=== PATIENT | male | born 1955 | race African-American/Black ===

== ENCOUNTER 2024-07-08 22:46 | Inpatient (IN) | payer MEDICARE ==
[~2024-07-08] VITALS: Ht 188 cm; Wt 108.9 kg
[2024-07-08 22:51] VITALS: O2SAT 99
[2024-07-08 23:41] LABS: BASOPHILS % 0.7 % (0.0-2.0); EOSINOPHILS % 0.7 % (0.0-5.0); HEMATOCRIT. 29.5 % (42.0-52.0); HEMOGLOBIN. 9.1 g/dL (14.0-18.0); LYMPHOCYTES % 14.9 % (20.0-50.0); MEAN CORPUSCULAR HEMOGLOBIN 20.5 pg (28.0-32.0); MEAN CORPUSCULAR HGB CONC 30.7 g/dL (31.0-37.0); MEAN CORPUSCULAR VOLUME 66.6 fL (80.0-94.0); MEAN PLATELET VOLUME 9.7 fl (7.4-10.4); MONOCYTES % 11.5 % (2.0-8.0); NEUTROPHILS % 72.2 % (40.0-76.0); PLATELET 232 x1000/uL (130-400); RED BLOOD CELL COUNT 4.43 mill/uL (4.7-6.1); RED CELL DISTRIBUTION WIDTH 20.1 % (11.6-14.6); WHITE BLOOD COUNT 4.5 x1000/uL (4.5-11.0)
[2024-07-08 23:44] LABS: CHLORIDE 108 mEq/L (98-107); POTASSIUM 3.7 mEq/L (3.5-5.1); SODIUM 140 mEq/L (136-145)
[2024-07-08 23:45] LABS: CALCIUM 8.8 mg/dL (8.7-10.4); CARBON DIOXIDE 24 mEq/L (21-32)
[2024-07-08 23:48] LABS: PARTIAL THROMBOPLASTIN TIME 26.8 sec (23.4-31.0); PROTHROMBIN TIME 11.6 sec (9.6-11.0)
[2024-07-08 23:50] LABS: CREATININE 0.8 mg/dL (0.6-1.3); ETHANOL BLOOD < 10 mg/dL (<10); GLUCOSE 125 mg/dL (70-105); UREA NITROGEN BLOOD 13 mg/dL (9-23)
[2024-07-08 23:51] LABS: TROPONIN I HIGH SENSITIVITY 28 ng/L (3.0-53)
[2024-07-09 00:33] LABS: DIFFERENTIAL COMMENT 1
[2024-07-09 00:34] LABS: ADD RBC MORPHOLOGY YES
[2024-07-09] MEDS: NITROGLYCERIN OINT 1GM/INCH UDPKT TD NR (00:41)
[2024-07-09] MEDS: FUROSEMIDE 40MG/4ML VIAL IVP NR (00:41)
[2024-07-09] MEDS: HYDRALAZINE 20MG/ML VIAL IV ONE (02:19)
[2024-07-09] MEDS ORDERED: DOCUSATE SODIUM 100MG CAPSULE PO PRN (08:15)
[2024-07-09] MEDS ORDERED: CLONIDINE 0.1MG TABLET PO PRN (08:15)
[2024-07-09] MEDS ORDERED: ONDANSETRON HCL 4MG/2ML INJ IV PRN (08:15)
[2024-07-09] MEDS ORDERED: IPRATROPIUM/ALBUTEROL 0.5-3(2.5)MG/3ML NEB HHN PRN (08:15)
[2024-07-09] MEDS ORDERED: ACETAMINOPHEN 325MG TABLET PO PRN (08:15)
[2024-07-09 08:55] VITALS: BP 167/98; PULSE 75; RESP 18; TEMP 36.3; O2SAT 97
[2024-07-09 09:00] VITALS: BP 167/98; PULSE 75; RESP 18; TEMP 36.3
[2024-07-09] MEDS: FUROSEMIDE 40MG/4ML VIAL IVP SCH (09:32)
[2024-07-09 11:50] VITALS: BP 147/92; PULSE 89; RESP 19; TEMP 36.6; O2SAT 100
[2024-07-09 12:46] LABS: HEMOGLOBIN. 9.3 g/dL (14.0-18.0)
[2024-07-09 12:48] LABS: HEMATOCRIT. 30.8 % (42.0-52.0); MEAN CORPUSCULAR HEMOGLOBIN 20.2 pg (28.0-32.0); MEAN CORPUSCULAR HGB CONC 30.1 g/dL (31.0-37.0); MEAN CORPUSCULAR VOLUME 67.1 fL (80.0-94.0); MEAN PLATELET VOLUME 10.4 fl (7.4-10.4); PLATELET 225 x1000/uL (130-400); RED BLOOD CELL COUNT 4.58 mill/uL (4.7-6.1); RED CELL DISTRIBUTION WIDTH 19.7 % (11.6-14.6); WHITE BLOOD COUNT 6.1 x1000/uL (4.5-11.0)
[2024-07-09 12:51] LABS: CHLORIDE 107 mEq/L (98-107); POTASSIUM 3.4 mEq/L (3.5-5.1); SODIUM 142 mEq/L (136-145)
[2024-07-09 12:52] LABS: CARBON DIOXIDE 28 mEq/L (21-32)
[2024-07-09 12:53] LABS: CALCIUM 8.8 mg/dL (8.7-10.4)
[2024-07-09 12:55] LABS: DIFFERENTIAL COMMENT 1
[2024-07-09 12:57] LABS: CREATININE 0.8 mg/dL (0.6-1.3); GLUCOSE 121 mg/dL (70-105)
[2024-07-09 12:58] LABS: UREA NITROGEN BLOOD 10 mg/dL (9-23)
[2024-07-09 12:59] LABS: ALANINE AMINOTRANSFERASE 34 IU/L (10-49); ALBUMIN 3.4 g/dL (3.2-4.8); ASPARTATE AMINOTRANSFERASE 38 IU/L (<34)
[2024-07-09 13:00] LABS: PROTEIN TOTAL 6.1 g/dL (6.0-8.3)
[2024-07-09] MEDS: DILTIAZEM HCL 30MG TABLET PO SCH (13:29)
[2024-07-09 13:37] LABS: ANISOCYTOSIS 3+; PLATELET ESTIMATE NORMAL
[2024-07-09 13:38] LABS: OVALOCYTES FEW
[2024-07-09 14:12] LABS: *AMPHETAMINES SCREEN URINE NEGATIVE (NEGATIVE); *BARBITURATES SCREEN URINE NEGATIVE (NEGATIVE); *BENZODIAZEPINES SCREEN URINE NEGATIVE (NEGATIVE); *COCAINE SCREEN URINE PRESUMPTIVE POSITIVE (NEGATIVE)
[2024-07-09 14:13] LABS: CANNABINOID URINE SCREEN NEGATIVE (NEGATIVE); ECSTASY MDMA SCREEN URINE NEGATIVE (NEGATIVE); METHADONE URINE SCREEN NEGATIVE (NEGATIVE); OPIATES URINE SCREEN NEGATIVE (NEGATIVE); PHENCYCLIDINE URINE SCREEN NEGATIVE (NEGATIVE)
[2024-07-09 16:37] VITALS: BP 134/73; PULSE 80; RESP 20; TEMP 36.7; O2SAT 98
[2024-07-09 18:13] LABS: HYPOCHROMASIA 3+; MICROCYTOSIS 3+; PLATELET ESTIMATE NORMAL
[2024-07-09 18:14] LABS: ANISOCYTOSIS 1+
[2024-07-09] MEDS: POTASSIUM CHLORIDE 20MEQ TABLET SR PO NR (19:02)
[2024-07-09] MEDS: ACETAMINOPHEN 325MG TABLET PO PRN (19:02)
[2024-07-09 20:00] VITALS: BP 109/73; PULSE 73; RESP 18; TEMP 36.7; O2SAT 99
[2024-07-09 21:00] VITALS: BP 133/90; PULSE 80
[2024-07-10] VITALS: BP 119/70; PULSE 85; RESP 18; TEMP 36.5; O2SAT 100
[2024-07-10 03:59] VITALS: BP_SYST 107; BP_SYST 129; BP_DIAS 70; BP_DIAS 88; PULSE 89; RESP 20; TEMP 36.4; O2SAT 100; O2SAT 95
[2024-07-10] MEDS: PNEUMOCOCCAL 20-VAL CONJ-DIP CRM 0.5ML IM ONE (06:05)
[2024-07-10] MEDS: INFLUENZA VACCINE 05/PF 0.5 ML SYRINGE IM ONE (06:06)
[2024-07-10 06:13] LABS: CARBON DIOXIDE 26 mEq/L (21-32); CHLORIDE 103 mEq/L (98-107); POTASSIUM 3.4 mEq/L (3.5-5.1)
[2024-07-10 06:14] LABS: SODIUM 138 mEq/L (136-145)
[2024-07-10 06:15] LABS: CALCIUM 8.7 mg/dL (8.7-10.4)
[2024-07-10 06:44] LABS: HEMATOCRIT. 29.7 % (42.0-52.0); MEAN CORPUSCULAR HEMOGLOBIN 20.2 pg (28.0-32.0); MEAN CORPUSCULAR HGB CONC 30.4 g/dL (31.0-37.0); MEAN CORPUSCULAR VOLUME 66.4 fL (80.0-94.0); MEAN PLATELET VOLUME 10.2 fl (7.4-10.4); PLATELET 242 x1000/uL (130-400); RED BLOOD CELL COUNT 4.47 mill/uL (4.7-6.1); RED CELL DISTRIBUTION WIDTH 20.2 % (11.6-14.6); WHITE BLOOD COUNT 5.4 x1000/uL (4.5-11.0)
[2024-07-10 06:53] LABS: CREATININE 0.8 mg/dL (0.6-1.3)
[2024-07-10 06:54] LABS: GLUCOSE 124 mg/dL (70-105); UREA NITROGEN BLOOD 14 mg/dL (9-23)
[2024-07-10 08:00] VITALS: BP 134/87; PULSE 77; RESP 20; TEMP 36.3; O2SAT 96
[2024-07-10 08:02] LABS: DIFFERENTIAL COMMENT 1
[2024-07-10 12:00] VITALS: BP 128/79; PULSE 80; RESP 16; TEMP 35.6; O2SAT 98
[2024-07-10 16:00] VITALS: BP 118/79; PULSE 79; RESP 20; TEMP 36.1; O2SAT 95
[2024-07-10 17:17] LABS: HYPOCHROMASIA 1+; MICROCYTOSIS 2+; PLATELET ESTIMATE NORMAL
[2024-07-10 20:00] VITALS: BP 134/85; PULSE 115; RESP 19; TEMP 36.8; O2SAT 97
[2024-07-10] MEDS: FUROSEMIDE 40MG/4ML VIAL IVP SCH (20:40)
[2024-07-10] MEDS: POTASSIUM CHLORIDE 20MEQ TABLET SR PO SCH (20:40)
[2024-07-11] VITALS: BP 114/73; PULSE 96; RESP 19; TEMP 36.4; O2SAT 98
[2024-07-11 04:00] VITALS: BP 121/74; PULSE 77; RESP 20; TEMP 36.4; O2SAT 98
[2024-07-11 08:14] VITALS: BP 112/57; PULSE 78; RESP 18; TEMP 36.8; O2SAT 97
[2024-07-11 08:25] LABS: BASOPHILS % 0.7 % (0.0-2.0); EOSINOPHILS % 2.3 % (0.0-5.0); HEMATOCRIT. 30.6 % (42.0-52.0); HEMOGLOBIN. 9.2 g/dL (14.0-18.0); MEAN CORPUSCULAR HEMOGLOBIN 20.2 pg (28.0-32.0); MEAN CORPUSCULAR HGB CONC 30.2 g/dL (31.0-37.0); MEAN CORPUSCULAR VOLUME 66.8 fL (80.0-94.0); PLATELET 235 x1000/uL (130-400); RED BLOOD CELL COUNT 4.57 mill/uL (4.7-6.1); RED CELL DISTRIBUTION WIDTH 20.5 % (11.6-14.6); WHITE BLOOD COUNT 4.8 x1000/uL (4.5-11.0)
[2024-07-11 08:44] LABS: CHLORIDE 105 mEq/L (98-107); POTASSIUM 3.6 mEq/L (3.5-5.1); SODIUM 138 mEq/L (136-145)
[2024-07-11 08:45] LABS: CALCIUM 8.6 mg/dL (8.7-10.4); CARBON DIOXIDE 26 mEq/L (21-32)
[2024-07-11 08:50] LABS: CREATININE 0.7 mg/dL (0.6-1.3); GLUCOSE 117 mg/dL (70-105); UREA NITROGEN BLOOD 11 mg/dL (9-23)
[2024-07-11 09:21] LABS: DIFFERENTIAL COMMENT 1
[2024-07-11] MEDS: MAGNESIUM OXIDE 400MG TABLET PO SCH (10:58)
[2024-07-11 12:00] VITALS: BP 128/91; PULSE 89; RESP 20; TEMP 36.3; O2SAT 97
[2024-07-11] MEDS ORDERED: DILT30TA3 PO (13:56)
== END 2024-07-11 15:35 | disposition home health service (06) | DRG 291 ==
LOC: ER 22:46 → 7WST 07-09 01:21
PROVIDERS: ADMIT Family Medicine Adult Medicine; ATTEND Family Medicine Adult Medicine
DX: I11.0 Hypertensive heart disease with heart failure (principal); I50.23 Acute on chronic systolic (congestive) heart failure; E87.6 Hypokalemia; E78.00 Pure hypercholesterolemia, unspecified; E66.9 Obesity, unspecified; D64.9 Anemia, unspecified; I25.10 Atherosclerotic heart disease of native coronary artery without angina pectoris; I25.2 Old myocardial infarction; I48.91 Unspecified atrial fibrillation; I49.3 Ventricular premature depolarization; F19.10 Other psychoactive substance abuse, uncomplicated; Z79.899 Other long term (current) drug therapy; Z88.0 Allergy status to penicillin; Z88.5 Allergy status to narcotic agent; Z91.199 Patient's noncompliance with other medical treatment and regimen due to unspecified reason; Z95.5 Presence of coronary angioplasty implant and graft; Z68.31 Body mass index [BMI] 31.0-31.9, adult
CPT/HCPCS: 36415; 71045; 80048; 80053; 80305; 80320; 83735; 83880; 84484; 85025; 90686; 90732; 93005; 93306; 99285; J0360; J1940; G0480

== ENCOUNTER 2024-12-06 12:58 | Inpatient (IN) | payer MEDICARE, MEDICAID ==
[~2024-12-06] VITALS: Ht 182.9 cm; Wt 65.3 kg
[~2024-12-06 12:58] MED LIST: APIX5TAB PO; DILT-26 PO; FAMO20TA8 PO; FERR-63 PO; FERR325T6 PO; LACT1CAP77 PO; LIP40 PO; LOPE2TAB26 PO; TOPUD PO; TRAZ-251 PO
[2024-12-06] MEDS: DIGOXIN 500MCG/2ML AMP IV ONE (13:15)
[2024-12-06] MEDS: SODIUM CHLORIDE 0.9% (SEPSIS BOLUS) IV ONE (13:33)
[2024-12-06] MEDS: CEFTRIAXONE 2GM/50ML 50 ML IV ONE (13:41)
[2024-12-06 14:22] LABS: BASOPHILS % 0.1 % (0.0-2.0); EOSINOPHILS % 0.1 % (0.0-5.0); HEMATOCRIT. 37.8 % (42.0-52.0); HEMOGLOBIN. 11.9 g/dL (14.0-18.0); LYMPHOCYTES % 10.3 % (20.0-50.0); MEAN PLATELET VOLUME 9.1 fl (7.4-10.4); MONOCYTES % 7.4 % (2.0-8.0); NEUTROPHILS % 82.1 % (40.0-76.0); PLATELET 292 x1000/uL (130-400); RED BLOOD CELL COUNT 5.23 mill/uL (4.7-6.1); RED CELL DISTRIBUTION WIDTH 25.2 % (11.6-14.6)
[2024-12-06 14:23] LABS: ADD RBC MORPHOLOGY YES
[2024-12-06 14:31] LABS: TROPONIN I HIGH SENSITIVITY 29 ng/L (3.0-53)
[2024-12-06 14:40] LABS: PLATELET ESTIMATE NORMAL
[2024-12-06] MEDS: VANCOMYCIN 1G PREMIX 200 ML IV ONE (14:40)
[2024-12-06 15:24] LABS: CREATININE 0.7 mg/dL (0.6-1.3)
[2024-12-06 15:25] LABS: UREA NITROGEN BLOOD 20 mg/dL (9-23)
[2024-12-06 15:26] LABS: ASPARTATE AMINOTRANSFERASE 36 IU/L (<34)
[2024-12-06 15:27] LABS: BILIRUBIN DIRECT 0.3 mg/dL (<=3.0); BILIRUBIN TOTAL 0.5 mg/dL (0.1-1.0); PROTEIN TOTAL 6.5 g/dL (6.0-8.3)
[2024-12-06 18:00] VITALS: BP 118/75; PULSE 82; RESP 16; TEMP 36; O2SAT 94
[2024-12-06 20:00] VITALS: BP 114/78; PULSE 71; RESP 16; TEMP 36.3; O2SAT 92
[2024-12-06 22:18] LABS: INR 1.5
[2024-12-07] VITALS: BP 102/72; PULSE 94; RESP 18; TEMP 36.2; O2SAT 97
[2024-12-07] MEDS: KETOROLAC 30MG/ML VIAL IV SCH (01:19)
[2024-12-07] MEDS ORDERED: ONDANSETRON HCL 4MG/2ML INJ IV PRN (02:00)
[2024-12-07] MEDS ORDERED: CEFEPIME 1GM IN DEXT 5% 50ML IV SCH (02:00)
[2024-12-07] MEDS ORDERED: MAGNESIUM/ALUMINUM HYDROXIDE/SIMETHICONE 30ML UDC PO PRN (02:00)
[2024-12-07] MEDS ORDERED: CLONIDINE 0.1MG TABLET PO PRN (02:00)
[2024-12-07] MEDS ORDERED: ACETAMINOPHEN 325MG TABLET PO PRN (02:00)
[2024-12-07] MEDS: DIGOXIN 500MCG/2ML AMP IV SCH (02:35)
[2024-12-07] MEDS: SODIUM CHLORIDE 0.9% 1,000 ML IV SCH (02:35)
[2024-12-07] MEDS: ZOLPIDEM TARTRATE 5MG TABLET PO PRN (02:35)
[2024-12-07 04:00] VITALS: BP 114/76; PULSE 94; RESP 18; TEMP 37.6; O2SAT 97
[2024-12-07] MEDS: CEFEPIME 2GM PREMIX 100ML IV SCH (05:38)
[2024-12-07 08:00] VITALS: BP 110/66; PULSE 95; RESP 17; TEMP 36.4; O2SAT 98
[2024-12-07] MEDS: PANTOPRAZOLE SODIUM 40 MG/VIAL IV SCH (08:34)
[2024-12-07 12:00] VITALS: BP 112/55; PULSE 95; RESP 17; TEMP 36.4; O2SAT 98
[2024-12-07] MEDS: KETOROLAC 30MG/ML VIAL IV PRN (13:27)
[2024-12-07 16:00] VITALS: BP 115/66; PULSE 95; RESP 17; TEMP 36.7; O2SAT 98
[2024-12-07 20:00] VITALS: BP 107/66; PULSE 85; RESP 17; TEMP 36.2; O2SAT 96
[2024-12-08] VITALS: BP 102/60; PULSE 70; RESP 16; TEMP 36.2; O2SAT 97
[2024-12-08 04:00] VITALS: BP 110/58; PULSE 80; RESP 18; TEMP 36.3; O2SAT 99
[2024-12-08 08:00] VITALS: BP 126/81; PULSE 89; RESP 18; TEMP 36.6; O2SAT 97
[2024-12-08 12:00] VITALS: BP 106/66; PULSE 75; RESP 20; TEMP 36.3; O2SAT 97
[2024-12-08 16:00] VITALS: BP 118/65; PULSE 60; RESP 16; TEMP 36.4; O2SAT 97
[2024-12-08 20:00] VITALS: BP 132/70; PULSE 89; RESP 20; TEMP 36.1; O2SAT 89
[2024-12-09] VITALS: BP 123/88; PULSE 85; RESP 18; TEMP 36.4; O2SAT 82
[2024-12-09 04:00] VITALS: BP 130/86; PULSE 80; RESP 18; TEMP 36.2; O2SAT 80
[2024-12-09 06:38] LABS: BASOPHILS % 0.2 % (0.0-2.0); EOSINOPHILS % 1.6 % (0.0-5.0); HEMATOCRIT. 36.2 % (42.0-52.0); HEMOGLOBIN. 11.4 g/dL (14.0-18.0); LYMPHOCYTES % 21.2 % (20.0-50.0); MEAN PLATELET VOLUME 8.8 fl (7.4-10.4); MONOCYTES % 10.1 % (2.0-8.0); NEUTROPHILS % 66.9 % (40.0-76.0); PLATELET 276 x1000/uL (130-400); RED BLOOD CELL COUNT 5.01 mill/uL (4.7-6.1); RED CELL DISTRIBUTION WIDTH 24.6 % (11.6-14.6)
[2024-12-09 06:39] LABS: CREATININE 0.5 mg/dL (0.6-1.3)
[2024-12-09 06:40] LABS: UREA NITROGEN BLOOD 12 mg/dL (9-23)
[2024-12-09 06:42] LABS: PHOSPHORUS 1.5 mg/dL (2.5-4.9)
[2024-12-09 07:53] LABS: ADD RBC MORPHOLOGY YES
[2024-12-09 08:00] VITALS: BP 100/77; PULSE 77; RESP 17; TEMP 36.6; O2SAT 77
[2024-12-09 12:00] VITALS: BP_SYST 100; BP_SYST 110; BP_DIAS 77; BP_DIAS 85; PULSE 77; PULSE 80; RESP 17; RESP 18; TEMP 36.2; TEMP 36.6; O2SAT 94; O2SAT 99
[2024-12-09] MEDS: MAGNESIUM 2 G PREMIX 50 ML IV SCH ×2 (15:34→18:21)
[2024-12-09 16:00] VITALS: BP 118/82; PULSE 72; RESP 19; TEMP 36.2; O2SAT 98
[2024-12-09] MEDS ORDERED: POTASSIUM PHOSPHATE 30 MMOL in SODIUM CHLORIDE 0.9% 490 ML IV ONE (18:00)
[2024-12-09 20:00] VITALS: BP 122/87; PULSE 83; RESP 15; TEMP 35.8; O2SAT 93
[2024-12-09] MEDS ORDERED: POTASSIUM PHOSPHATE 30 MMOL in SODIUM CHLORIDE 0.9% 490 ML IV SCH (20:00)
[2024-12-09 20:39] LABS: PLATELET ESTIMATE NORMAL
[2024-12-09] MEDS: SODIUM PHOSPHATE 30 MMOL in DEXT 5% WATER 490 ML IV SCH (21:50)
[2024-12-10] VITALS: BP 130/85; PULSE 75; RESP 16; TEMP 36.8; O2SAT 93
[2024-12-10 04:00] VITALS: BP 155/97; PULSE 77; RESP 18; TEMP 36.5; O2SAT 100
[2024-12-10 08:00] VITALS: BP 133/98; PULSE 90; RESP 17; TEMP 36.1; O2SAT 99
[2024-12-10] MEDS: MAGNESIUM 2 G PREMIX 50 ML IV NR (09:42)
[2024-12-10] MEDS: FAMOTIDINE 20MG/2ML VIAL IV SCH (09:42)
[2024-12-10] MEDS: CARVEDILOL 3.125 MG TABLET PO SCH (11:03)
[2024-12-10 12:00] VITALS: BP 89/58; PULSE 75; RESP 18; TEMP 36.9; O2SAT 95
[2024-12-10] MEDS: POTASSIUM PHOSPHATE 10 MMOL in DEXT 5% WATER 246.6667 ML IV NR (14:00)
[2024-12-10 16:00] VITALS: BP 98/65; PULSE 17; RESP 17; TEMP 36.1; O2SAT 99
[2024-12-10 20:00] VITALS: BP 93/64; PULSE 67; RESP 18; TEMP 36.4; O2SAT 94
[2024-12-10 20:09] LABS: CLARITY URINE CLOUDY (CLEAR); COLOR URINE DARK YELLOW (YELLOW)
[2024-12-10 20:10] LABS: GLUCOSE URINE NEGATIVE (NEGATIVE); KETONES URINE TRACE (NEGATIVE); LEUKOCYTE ESTERASE URINE NEGATIVE (NEGATIVE); NITRITE URINE NEGATIVE (NEGATIVE); OCCULT BLOOD URINE NEGATIVE (NEGATIVE); PH URINE 5.5 (4.5-8.0); PROTEIN URINE 1+ (NEGATIVE); SPECIFIC GRAVITY URINE 1.041 (1.005-1.030); UROBILINOGEN URINE 0.2 E.U./dL (0.2-1.0)
[2024-12-10 20:13] LABS: *AMPHETAMINES SCREEN URINE NEGATIVE (NEGATIVE); *BARBITURATES SCREEN URINE NEGATIVE (NEGATIVE); *BENZODIAZEPINES SCREEN URINE NEGATIVE (NEGATIVE); *COCAINE SCREEN URINE PRESUMPTIVE POSITIVE (NEGATIVE); AMORPHOUS SEDIMENT URINE 1+ /lpf; BACTERIA URINE NONE SEEN; CALCIUM OXALATE CRYSTALS URINE 1+ /lpf; METHADONE URINE SCREEN NEGATIVE (NEGATIVE); RBC URINE NONE SEEN /hpf (0-2); SQUAMOUS EPITHELIAL CELL URINE FEW /lpf (RARE/1+); WBC URINE 0-2 /hpf (0-2)
[2024-12-10 20:14] LABS: CANNABINOID URINE SCREEN NEGATIVE (NEGATIVE); ECSTASY MDMA SCREEN URINE NEGATIVE (NEGATIVE); OPIATES URINE SCREEN NEGATIVE (NEGATIVE); PHENCYCLIDINE URINE SCREEN NEGATIVE (NEGATIVE)
[2024-12-11] VITALS: BP 127/88; PULSE 61; RESP 20; TEMP 37; O2SAT 95
[2024-12-11 04:00] VITALS: BP 94/63; PULSE 71; RESP 17; TEMP 37.1; O2SAT 95
[2024-12-11 07:19] LABS: CREATININE 0.6 mg/dL (0.6-1.3); UREA NITROGEN BLOOD 13 mg/dL (9-23)
[2024-12-11 07:21] LABS: PHOSPHORUS 1.8 mg/dL (2.5-4.9)
[2024-12-11 08:00] VITALS: BP 96/71; PULSE 77; RESP 18; TEMP 36.3; O2SAT 92
[2024-12-11] MEDS: POTASSIUM-SODIUM PHOSPHATE POWDER PACKET PO SCH (10:41)
[2024-12-11 12:00] VITALS: BP 90/46; PULSE 86; RESP 18; TEMP 36.4; O2SAT 96
[2024-12-11 16:00] VITALS: BP 102/66; PULSE 71; RESP 19; TEMP 36.3; O2SAT 100
[2024-12-11 20:00] VITALS: BP 121/82; PULSE 83; RESP 15; TEMP 36.7; O2SAT 89; O2SAT 96
[2024-12-12] VITALS: BP 129/95; PULSE 80; RESP 17; TEMP 36.6; O2SAT 96
[2024-12-12 04:00] VITALS: BP 120/78; PULSE 84; RESP 17; TEMP 37.1; O2SAT 95
[2024-12-12] MEDS: DIPHENHYDRAMINE 50MG/ML VIAL IV PRN (09:03)
[2024-12-12 12:00] VITALS: PULSE 64; RESP 18; TEMP 36.4; O2SAT 95
[2024-12-12 16:00] VITALS: BP 109/75; PULSE 67; RESP 20; TEMP 36.4; O2SAT 96
[2024-12-12 20:00] VITALS: BP 112/69; PULSE 73; RESP 16; TEMP 36.7; O2SAT 98
[2024-12-13] VITALS: BP 129/86; PULSE 80; RESP 16; TEMP 36.3; O2SAT 97
[2024-12-13 04:00] VITALS: BP 101/68; PULSE 68; RESP 16; TEMP 36.9; O2SAT 97
[2024-12-13 06:20] VITALS: BP 106/71; PULSE 103; RESP 18; TEMP 36.5; O2SAT 98
[2024-12-13] MEDS: ACETAMINOPHEN 325MG TABLET PO PRN (06:50)
[2024-12-13 08:00] VITALS: BP 78/59; PULSE 127; RESP 22; TEMP 36.3; O2SAT 97
[2024-12-13 09:31] VITALS: BP 131/87; PULSE 119; TEMP 97.3; O2SAT 97
== END 2024-12-13 09:50 | disposition home or self-care (01) | DRG 863 ==
LOC: ER 12:58 → EDBEDREQ 17:08 → EDBEDREQTM 17:08 → 5WST 17:09 → ENRESERV 17:11 → 6EST 12-13 06:13
PROVIDERS: ADMIT Internal Medicine; ATTEND Internal Medicine
DX: T81.49XA Infection following a procedure, other surgical site, initial encounter (principal); I11.0 Hypertensive heart disease with heart failure; I50.9 Heart failure, unspecified; Z93.3 Colostomy status; I48.0 Paroxysmal atrial fibrillation; R10.9 Unspecified abdominal pain; E83.42 Hypomagnesemia; F14.90 Cocaine use, unspecified, uncomplicated; E78.5 Hyperlipidemia, unspecified; I25.10 Atherosclerotic heart disease of native coronary artery without angina pectoris; I25.2 Old myocardial infarction; Z98.61 Coronary angioplasty status; Z85.048 Personal history of other malignant neoplasm of rectum, rectosigmoid junction, and anus; Z88.0 Allergy status to penicillin; Z88.5 Allergy status to narcotic agent; Z90.49 Acquired absence of other specified parts of digestive tract; Y83.8 Other surgical procedures as the cause of abnormal reaction of the patient, or of later complication, without mention of misadventure at the time of the procedure; Y73.3 Surgical instruments, materials and gastroenterology and urology devices (including sutures) associated with adverse incidents; Y92.89 Other specified places as the place of occurrence of the external cause
CPT/HCPCS: 36415; 71045; 80048; 80076; 80305; 81003; 82962; 83605; 83735; 83880; 84100; 84145; 84484; 85025; 93005; 97163; 97166; 99291; J0692; J0696; J1160; J1200; J1308; J1885; J2470; J3373; J3475; J3490; J7030; J7040; J7060

== ENCOUNTER 2024-12-29 12:57 | Inpatient (IN) | payer MEDICARE, MEDICAID ==
[~2024-12-29] VITALS: Ht 180.3 cm; Wt 63.5 kg
[2024-12-29] VITALS (22 sets, daily range): BP systolic 61–156; BP diastolic 35–127; PULSE 111–130; RESP 17–33; TEMP 36.2; O2SAT 95–99
[2024-12-29] MEDS: SODIUM CHLORIDE 0.9% IV ONE (13:30)
[2024-12-29] MEDS ORDERED: AMIODARONE HCL 150 MG in DEXT 5% WATER 97 ML IV ONE (13:30)
[2024-12-29] MEDS: AMIODARONE 150MG/100ML D5W 100 ML IV NR ×2 (13:30→15:46)
[2024-12-29 14:43] LABS: UREA NITROGEN BLOOD 31 mg/dL (9-23)
[2024-12-29 14:44] LABS: HEMATOCRIT. 24.1 % (42.0-52.0); HEMOGLOBIN. 7.5 g/dL (14.0-18.0); MEAN PLATELET VOLUME 9.4 fl (7.4-10.4); PLATELET 122 x1000/uL (130-400); RED BLOOD CELL COUNT 3.37 mill/uL (4.7-6.1); RED CELL DISTRIBUTION WIDTH 23.4 % (11.6-14.6)
[2024-12-29] MEDS ORDERED: SODIUM CHLORIDE 0.9% 500 ML IV NR (15:00)
[2024-12-29] MEDS ORDERED: VANCOMYCIN 500 MG in DEXT 5% WATER 100 ML IV SCH (15:15)
[2024-12-29 15:22] LABS: CREATININE 1.3 mg/dL (0.6-1.3)
[2024-12-29 15:34] LABS: CLARITY URINE TURBID (CLEAR); COLOR URINE DARK YELLOW (YELLOW); GLUCOSE URINE NEGATIVE (NEGATIVE); KETONES URINE NEGATIVE (NEGATIVE); LEUKOCYTE ESTERASE URINE TRACE (NEGATIVE); NITRITE URINE NEGATIVE (NEGATIVE); OCCULT BLOOD URINE 3+ (NEGATIVE); PH URINE 5.0 (4.5-8.0); PROTEIN URINE 2+ (NEGATIVE); SPECIFIC GRAVITY URINE 1.026 (1.005-1.030); UROBILINOGEN URINE 1.0 E.U./dL (0.2-1.0)
[2024-12-29 15:45] LABS: TROPONIN I HIGH SENSITIVITY 214 ng/L (3.0-53)
[2024-12-29 15:59] LABS: BACTERIA URINE 3+; RBC URINE 15-25 /hpf (0-2); SQUAMOUS EPITHELIAL CELL URINE FEW /lpf (RARE/1+)
[2024-12-29 16:13] LABS: BG BASE EXCESS -13.6 mmol/L (-2.0-3.0); BG CARBOXYHEMOGLOBIN 1.1 % (0.5-1.5); BG DEOXYHEMOGLOBIN 1.6 % (0.0-5.0); BG FRACTION INSPIRED OXYGEN 21; BG HCO3 ACT 8.6 mmol/L (21.0-28.0); BG METHEMOGLOBIN 0.3 % (0.5-1.5); BG OXYGEN SATURATION 98.4 % (94.0-98.0); BG OXYHEMOGLOBIN 97.0 % (94.0-98.0); BG PCO2 13.0 mmHg (35.0-48.0); BG PH 7.438 (7.350-7.450); BG PO2 139.2 mmHg (83.0-108.0); BG SAMPLE SITE LEFT BRACHIAL; BG TOTAL HEMOGLOBIN 8.5 g/dL (13.5-17.5); BG VENT MODE ROOM AIR
[2024-12-29] MEDS: PIPERACILLIN/TAZO 3.375G/50ML 50 ML IV SCH ×2 (16:14→23:52)
[2024-12-29 16:56] LABS: BAND% 10.0 % (1.0-6.0); EOSINOPHILS % MANUAL 3.0 % (0.0-5.0); LYMPHOCYTES % MANUAL 5.0 % (20.0-50.0); METAMYELOCYTES % 1.0 % (0-0); MONOCYTES % MANUAL 6.0 % (2.0-8.0); MYELOCYTES % 1.0 % (0-0); NEUTROPHILS % MANUAL 74.0 % (45.0-75.0); PLATELET ESTIMATE SLIGHTLY DECREASED
[2024-12-29] MEDS: VANCOMYCIN 500MG/100ML IV SCH (16:56)
[2024-12-29] MEDS: SODIUM BICARBONATE 8.4% 50MEQ/50ML SYR IV ONE (16:58)
[2024-12-29] MEDS ORDERED: AMIODARONE HCL 900 MG in DEXT 5% WATER 482 ML IV SCH (17:15)
[2024-12-29] MEDS ORDERED: AMIODARONE 360MG/200ML D5W PREMIX IV SCH (18:00)
[2024-12-29] MEDS: AMIODARONE 360MG/200ML D5W PREMIX IV ONE (18:24)
[2024-12-29] MEDS ORDERED: HYDROCODONE/ACETAMINOPHEN 5/325MG TABLET PO PRN (19:30)
[2024-12-29] MEDS ORDERED: CLONIDINE 0.1MG TABLET PO PRN (19:30)
[2024-12-29] MEDS ORDERED: MAGNESIUM/ALUMINUM HYDROXIDE/SIMETHICONE 30ML UDC PO PRN (19:30)
[2024-12-29] MEDS ORDERED: ONDANSETRON HCL 4MG/2ML INJ IV PRN (19:30)
[2024-12-29] MEDS: VANCOMYCIN 1G PREMIX 200 ML IV NR (21:41)
[2024-12-29] MEDS: SODIUM CHLORIDE 0.9% 1,000 ML IV SCH (21:41)
[2024-12-29] MEDS: IOHEXOL-300 100 ML BOTTLE ONE (23:27)
[2024-12-29 23:39] LABS: INR 1.7
[2024-12-30] VITALS (108 sets, daily range): BP systolic 65–166; BP diastolic 14–123; PULSE 81–140; RESP 0–40; TEMP 36.4–37.3; O2SAT 60–99
[2024-12-30] MEDS: ZOLPIDEM TARTRATE 5MG TABLET PO PRN (00:15)
[2024-12-30 00:33] LABS: TROPONIN I HIGH SENSITIVITY 235 ng/L (3.0-53)
[2024-12-30] MEDS: AMIODARONE 360MG/200ML 200 ML IV PRN (01:55)
[2024-12-30] MEDS: NOREPINEPHRINE 32 MG in DEXT 5% WATER 218 ML IV PRN (03:22)
[2024-12-30 06:08] LABS: CREATININE 1.4 mg/dL (0.6-1.3); UREA NITROGEN BLOOD 30 mg/dL (9-23)
[2024-12-30 06:39] LABS: TROPONIN I HIGH SENSITIVITY 268 ng/L (3.0-53)
[2024-12-30] MEDS: SODIUM BICARBONATE 8.4% 50MEQ/50ML SYR IV NR (06:53)
[2024-12-30] MEDS: DEXTROSE 50% WATER 50ML SYRINGE IV PRN (06:53)
[2024-12-30] MEDS ORDERED: VANCOMYCIN 750MG PREMIX 150 ML IV SCH (09:00)
[2024-12-30] MEDS: PANTOPRAZOLE SODIUM 40 MG/VIAL IV SCH ×2 (09:40→21:48)
[2024-12-30 10:05] LABS: BG BASE EXCESS -5.1 mmol/L (-2.0-3.0); BG CARBOXYHEMOGLOBIN 1.6 % (0.5-1.5); BG DEOXYHEMOGLOBIN 1.3 % (0.0-5.0); BG FLOW(L/min) 3.00 L/min; BG FRACTION INSPIRED OXYGEN 32; BG HCO3 ACT 16.6 mmol/L (21.0-28.0); BG METHEMOGLOBIN 0.3 % (0.5-1.5); BG OXYGEN SATURATION 98.7 % (94.0-98.0); BG OXYHEMOGLOBIN 96.8 % (94.0-98.0); BG PCO2 20.8 mmHg (35.0-48.0); BG PH 7.521 (7.350-7.450); BG PO2 144.3 mmHg (83.0-108.0); BG SAMPLE SITE RIGHT RADIAL; BG TOTAL HEMOGLOBIN 8.5 g/dL (13.5-17.5); BG VENT MODE NASAL CANNULA
[2024-12-30] MEDS ORDERED: NALOXONE HCL 0.4MG/ML VIAL IV PRN (10:15)
[2024-12-30] MEDS ORDERED: ENOXAPARIN 60MG/0.6ML SYR SUBCUT SCH (10:30)
[2024-12-30 10:33] LABS: HEMATOCRIT. 26.1 % (42.0-52.0); HEMOGLOBIN. 8.2 g/dL (14.0-18.0); MEAN PLATELET VOLUME 9.5 fl (7.4-10.4); PLATELET 132 x1000/uL (130-400); RED BLOOD CELL COUNT 3.73 mill/uL (4.7-6.1); RED CELL DISTRIBUTION WIDTH 23.4 % (11.6-14.6)
[2024-12-30 10:49] LABS: *AMPHETAMINES SCREEN URINE NEGATIVE (NEGATIVE); *BENZODIAZEPINES SCREEN URINE NEGATIVE (NEGATIVE)
[2024-12-30 10:51] LABS: *BARBITURATES SCREEN URINE NEGATIVE (NEGATIVE); *COCAINE SCREEN URINE NEGATIVE (NEGATIVE); METHADONE URINE SCREEN NEGATIVE (NEGATIVE); OPIATES URINE SCREEN NEGATIVE (NEGATIVE)
[2024-12-30 10:52] LABS: CANNABINOID URINE SCREEN NEGATIVE (NEGATIVE); ECSTASY MDMA SCREEN URINE NEGATIVE (NEGATIVE); PHENCYCLIDINE URINE SCREEN NEGATIVE (NEGATIVE)
[2024-12-30] MEDS: BLOOD SUGAR DIAGNOSTIC STRIP TEST SCH (10:58)
[2024-12-30] MEDS: SODIUM BICARBONATE 100 MEQ in DEXTROSE 5% WATER 900 ML IV SCH (11:05)
[2024-12-30] MEDS: VANCOMYCIN 500MG PREMIX 100 ML IV SCH (11:07)
[2024-12-30] MEDS: DEXT 10% WATER 1,000 ML IV SCH (11:35)
[2024-12-30 11:58] LABS: BAND% 34.0 % (1.0-6.0); LYMPHOCYTES % MANUAL 6.0 % (20.0-50.0); MONOCYTES % MANUAL 4.0 % (2.0-8.0); NEUTROPHILS % MANUAL 56.0 % (45.0-75.0); PLATELET ESTIMATE NORMAL
[2024-12-30] MEDS: DILTIAZEM HCL 30MG TABLET PO SCH (12:00)
[2024-12-30] MEDS: DILTIAZEM HCL 5MG/ML 5ML VIAL IV SCH (12:00)
[2024-12-30 12:15] LABS: BASOPHILS % 0.0 % (0.0-2.0); EOSINOPHILS % 4.6 % (0.0-5.0); HEMATOCRIT. 25.5 % (42.0-52.0); HEMOGLOBIN. 8.1 g/dL (14.0-18.0); LYMPHOCYTES % 7.3 % (20.0-50.0); MEAN PLATELET VOLUME 10.1 fl (7.4-10.4); MONOCYTES % 7.2 % (2.0-8.0); NEUTROPHILS % 80.9 % (40.0-76.0); PLATELET 134 x1000/uL (130-400); RED BLOOD CELL COUNT 3.62 mill/uL (4.7-6.1); RED CELL DISTRIBUTION WIDTH 23.7 % (11.6-14.6)
[2024-12-30 12:34] LABS: CREATININE 1.7 mg/dL (0.6-1.3)
[2024-12-30 12:35] LABS: BILIRUBIN DIRECT 0.6 mg/dL (<=3.0); BILIRUBIN TOTAL 0.9 mg/dL (0.1-1.0); UREA NITROGEN BLOOD 37 mg/dL (9-23)
[2024-12-30 12:36] LABS: ASPARTATE AMINOTRANSFERASE 278 IU/L (<34); ASPARTATE AMINOTRANSFERASE 279 IU/L (<34); BILIRUBIN DIRECT 0.6 mg/dL (<=3.0); BILIRUBIN TOTAL 0.8 mg/dL (0.1-1.0)
[2024-12-30 12:37] LABS: BILIRUBIN TOTAL 0.8 mg/dL (0.1-1.0); PHOSPHORUS 4.7 mg/dL (2.5-4.9)
[2024-12-30 12:40] LABS: FOLIC ACID (FOLATE) SERUM 6.15 ng/mL (>5.38); VITAMIN B12 SERUM 1864 pg/mL (211-911)
[2024-12-30 13:13] LABS: PROTEIN TOTAL 3.9 g/dL (6.0-8.3)
[2024-12-30 13:17] LABS: PROTEIN TOTAL 3.9 g/dL (6.0-8.3)
[2024-12-30] MEDS: MORPHINE SULFATE 2 MG/ML INJ (NOT FOR IM USE) IV PRN (15:17)
[2024-12-30] MEDS ORDERED: PHENYLEPHRINE 50MG/250ML PMX 250 ML IV PRN (16:15)
[2024-12-30] MEDS: SODIUM POLYSTYRENE SULFONATE 15 G/60 ML BOT PO SCH (17:13)
[2024-12-30 18:41] LABS: HEMATOCRIT. 24.7 % (42.0-52.0); HEMOGLOBIN. 8.1 g/dL (14.0-18.0); MEAN PLATELET VOLUME 9.2 fl (7.4-10.4); PLATELET 119 x1000/uL (130-400); RED BLOOD CELL COUNT 3.60 mill/uL (4.7-6.1); RED CELL DISTRIBUTION WIDTH 23.2 % (11.6-14.6)
[2024-12-30 19:15] LABS: LYMPHOCYTES % MANUAL 16.0 % (20.0-50.0); MONOCYTES % MANUAL 10.0 % (2.0-8.0); NEUTROPHILS % MANUAL 74.0 % (45.0-75.0); PLATELET ESTIMATE DECREASED
[2024-12-30] MEDS: HYDROCORTISONE SOD SUCCINATE 100 MG/2 ML VIAL IV SCH (21:48)
[2024-12-30] MEDS ORDERED: AMIODARONE 360MG/200ML 200 ML IV SCH (23:45)
[2024-12-31] VITALS (97 sets, daily range): BP systolic 72–132; BP diastolic 60–98; PULSE 72–122; RESP 14–30; TEMP 35.9–37.3; O2SAT 83–100
[2024-12-31 01:01] LABS: HEMATOCRIT. 30.9 % (42.0-52.0); HEMOGLOBIN. 9.4 g/dL (14.0-18.0); MEAN PLATELET VOLUME 9.7 fl (7.4-10.4); PLATELET 128 x1000/uL (130-400); RED BLOOD CELL COUNT 4.17 mill/uL (4.7-6.1); RED CELL DISTRIBUTION WIDTH 24.0 % (11.6-14.6)
[2024-12-31 01:39] LABS: BAND% 8.0 % (1.0-6.0); LYMPHOCYTES % MANUAL 8.0 % (20.0-50.0); METAMYELOCYTES % 2.0 % (0-0); MONOCYTES % MANUAL 8.0 % (2.0-8.0); MYELOCYTES % 2.0 % (0-0); NEUTROPHILS % MANUAL 72.0 % (45.0-75.0); PLATELET ESTIMATE SLIGHTLY DECREASED
[2024-12-31 04:49] LABS: HEMATOCRIT. 25.9 % (42.0-52.0); HEMOGLOBIN. 8.2 g/dL (14.0-18.0); RED BLOOD CELL COUNT 3.72 mill/uL (4.7-6.1); RED CELL DISTRIBUTION WIDTH 23.5 % (11.6-14.6)
[2024-12-31 05:02] LABS: CREATININE 2.0 mg/dL (0.6-1.3)
[2024-12-31 05:03] LABS: TRIGLYCERIDE 101 mg/dL (0-150); UREA NITROGEN BLOOD 43 mg/dL (9-23)
[2024-12-31 05:05] LABS: PHOSPHORUS 6.0 mg/dL (2.5-4.9)
[2024-12-31] MEDS: BLOOD SUGAR DIAGNOSTIC STRIP TEST SCH (06:03)
[2024-12-31 08:06] LABS: BG BASE EXCESS -2.0 mmol/L (-2.0-3.0); BG CARBOXYHEMOGLOBIN 0.4 % (0.5-1.5); BG DEOXYHEMOGLOBIN 0.3 % (0.0-5.0); BG HCO3 ACT 25.1 mmol/L (21.0-28.0); BG METHEMOGLOBIN 0.3 % (0.5-1.5); BG OXYGEN SATURATION 99.7 % (94.0-98.0); BG OXYHEMOGLOBIN 99.0 % (94.0-98.0); BG PCO2 54.6 mmHg (35.0-48.0); BG PH 7.280 (7.350-7.450); BG PO2 366.5 mmHg (83.0-108.0); BG SAMPLE SITE ALINE; BG TOTAL HEMOGLOBIN 9.7 g/dL (13.5-17.5)
[2024-12-31 08:19] LABS: BG FRACTION INSPIRED OXYGEN 100
[2024-12-31 08:20] LABS: BG TIDAL VOLUME(mL) 450 mL; BG VENT MODE VENT - AC; BG VENT RATE 18 set
[2024-12-31 08:21] LABS: BG PEEP (cmH2O) 5 cmH2O
[2024-12-31] MEDS ORDERED: ETOMIDATE 2MG/ML 10ML VIAL IV ONE (09:29)
[2024-12-31] MEDS ORDERED: ROCURONIUM BROMIDE 10MG/ML VIAL 5ML IV ONE (09:29)
[2024-12-31] MEDS ORDERED: PHENYLEPHRINE 50MG/250ML PMX 250 ML IV PRN (09:30)
[2024-12-31] MEDS: MEROPENEM 1G/100ML 100 ML IV SCH (11:55)
[2024-12-31] MEDS: IPRATROPIUM/ALBUTEROL 0.5-3(2.5)MG/3ML NEB HHN PRN (12:39)
[2024-12-31] MEDS: PROPOFOL 10MG/ML 100ML 100 ML IV PRN (16:13)
[2024-12-31 17:42] LABS: MEAN PLATELET VOLUME 9.8 fl (7.4-10.4); PLATELET 110 x1000/uL (130-400)
[2024-12-31 17:44] LABS: BAND% 14.0 % (1.0-6.0); LYMPHOCYTES % MANUAL 3.0 % (20.0-50.0); MONOCYTES % MANUAL 4.0 % (2.0-8.0); NEUTROPHILS % MANUAL 79.0 % (45.0-75.0); PLATELET ESTIMATE DECREASED
[2024-12-31] MEDS: IPRATROPIUM BROMIDE (0.02%) 0.5MG/2.5ML NEB HHN SCH (20:44)
[2025-01-01] VITALS (106 sets, daily range): BP systolic 77–191; BP diastolic 65–130; PULSE 75–114; RESP 14–38; TEMP 36.3–36.6; O2SAT 10–100
[2025-01-01 05:49] LABS: CREATININE 2.6 mg/dL (0.6-1.3)
[2025-01-01 05:50] LABS: UREA NITROGEN BLOOD 51.0 mg/dL (9-23)
[2025-01-01] MEDS: PROPOFOL 10MG/ML 100ML 100 ML IV SCH (06:49)
[2025-01-01 08:52] LABS: BG BASE EXCESS -1.6 mmol/L (-2.0-3.0); BG CARBOXYHEMOGLOBIN 1.4 % (0.5-1.5); BG DEOXYHEMOGLOBIN 1.1 % (0.0-5.0); BG FRACTION INSPIRED OXYGEN 30; BG HCO3 ACT 20.4 mmol/L (21.0-28.0); BG METHEMOGLOBIN 0.3 % (0.5-1.5); BG OXYGEN SATURATION 98.9 % (94.0-98.0); BG OXYHEMOGLOBIN 97.2 % (94.0-98.0); BG PCO2 24.8 mmHg (35.0-48.0); BG PEEP (cmH2O) 5.0 cmH2O; BG PH 7.533 (7.350-7.450); BG PO2 146.8 mmHg (83.0-108.0); BG SAMPLE SITE RIGHT BRACHIAL; BG TIDAL VOLUME(mL) 500.0 mL; BG TOTAL HEMOGLOBIN 8.2 g/dL (13.5-17.5); BG VENT MODE VENT - AC; BG VENT RATE 24.0 set
[2025-01-01] MEDS: FUROSEMIDE 40MG/4ML VIAL IVP NR (09:01)
[2025-01-01] MEDS: BLOOD SUGAR DIAGNOSTIC STRIP TEST SCH (12:30)
[2025-01-01] MEDS ORDERED: VANCOMYCIN 750MG PREMIX 150 ML IV SCH (15:00)
[2025-01-01] MEDS ORDERED: HYDROCORTISONE SOD SUCCINATE 100 MG/2 ML VIAL IV SCH (21:00)
[2025-01-02] VITALS (108 sets, daily range): BP systolic 77–135; BP diastolic 55–103; PULSE 77–114; RESP 12–32; TEMP 36.5–36.7; O2SAT 96–100
[2025-01-02 06:07] LABS: HEMATOCRIT. 23.5 % (42.0-52.0); HEMOGLOBIN. 7.6 g/dL (14.0-18.0); RED BLOOD CELL COUNT 3.41 mill/uL (4.7-6.1); RED CELL DISTRIBUTION WIDTH 23.0 % (11.6-14.6)
[2025-01-02 06:34] LABS: CREATININE 3.1 mg/dL (0.6-1.3); TRIGLYCERIDE 198.0 mg/dL (0-150); UREA NITROGEN BLOOD 55.0 mg/dL (9-23)
[2025-01-02 09:21] LABS: BG BASE EXCESS -1.8 mmol/L (-2.0-3.0); BG CARBOXYHEMOGLOBIN 0.9 % (0.5-1.5); BG DEOXYHEMOGLOBIN 0.8 % (0.0-5.0); BG FRACTION INSPIRED OXYGEN 30; BG HCO3 ACT 18.9 mmol/L (21.0-28.0); BG METHEMOGLOBIN 0.3 % (0.5-1.5); BG OXYGEN SATURATION 99.2 % (94.0-98.0); BG OXYHEMOGLOBIN 98.0 % (94.0-98.0); BG PCO2 19.9 mmHg (35.0-48.0); BG PEEP (cmH2O) 5.0 cmH2O; BG PH 7.596 (7.350-7.450); BG PO2 175.9 mmHg (83.0-108.0); BG SAMPLE SITE RIGHT RADIAL; BG TIDAL VOLUME(mL) 500.0 mL; BG TOTAL HEMOGLOBIN 8.4 g/dL (13.5-17.5); BG TOTAL RESPIRATORY RATE 24 b/min; BG VENT MODE VENT - AC; BG VENT RATE 20.0 set
[2025-01-02 10:53] LABS: BAND% 13.0 % (1.0-6.0); LYMPHOCYTES % MANUAL 5.0 % (20.0-50.0); MONOCYTES % MANUAL 1.0 % (2.0-8.0); NEUTROPHILS % MANUAL 81.0 % (45.0-75.0)
[2025-01-02 14:28] LABS: PLATELET ESTIMATE DECREASED
[2025-01-02 14:29] LABS: PLATELET 53 x1000/uL (130-400)
[2025-01-02] MEDS: IPRATROPIUM/ALBUTEROL 0.5-3(2.5)MG/3ML NEB HHN SCH (14:54)
[2025-01-02 17:53] LABS: COLOR URINE YELLOW (YELLOW); GLUCOSE URINE TRACE (NEGATIVE); KETONES URINE TRACE (NEGATIVE); LEUKOCYTE ESTERASE URINE NEGATIVE (NEGATIVE); NITRITE URINE NEGATIVE (NEGATIVE); OCCULT BLOOD URINE 3+ (NEGATIVE); PH URINE 5.5 (4.5-8.0); PROTEIN URINE 2+ (NEGATIVE); SPECIFIC GRAVITY URINE 1.021 (1.005-1.030); UROBILINOGEN URINE 0.2 E.U./dL (0.2-1.0)
[2025-01-02 18:12] LABS: SODIUM URINE RANDOM 55.0 mEq/L
[2025-01-02 18:19] LABS: CREATININE URINE RANDOM 27.6 mg/dL; UREA NITROGEN URINE RANDOM 113.0 mg/dL
[2025-01-02 18:29] LABS: OSMOLALITY URINE 289.0 mOsm/kg (500-850)
[2025-01-02 18:30] LABS: CLARITY URINE HAZY (CLEAR); WBC URINE 0-2 /hpf (0-2)
[2025-01-02 18:31] LABS: BACTERIA URINE TRACE; MUCUS URINE TRACE /lpf (NONE/TRACE); SQUAMOUS EPITHELIAL CELL URINE RARE /lpf (RARE/1+)
[2025-01-02] MEDS: FUROSEMIDE 40MG/4ML VIAL IVP NR (18:38)
[2025-01-02] MEDS ORDERED: FENTANYL CITRATE/PF 50MCG/ML 2ML VIAL IV PRN (22:00)
[2025-01-03] VITALS (88 sets, daily range): BP systolic 100–128; BP diastolic 67–98; PULSE 74–99; RESP 11–24; TEMP 36.1–36.6; O2SAT 99–100
[2025-01-03 06:10] LABS: HEMATOCRIT. 23.2 % (42.0-52.0); HEMOGLOBIN. 7.5 g/dL (14.0-18.0); RED BLOOD CELL COUNT 3.40 mill/uL (4.7-6.1); RED CELL DISTRIBUTION WIDTH 23.2 % (11.6-14.6)
[2025-01-03 06:33] LABS: CREATININE 3.7 mg/dL (0.6-1.3)
[2025-01-03 06:34] LABS: UREA NITROGEN BLOOD 69 mg/dL (9-23)
[2025-01-03 06:36] LABS: PHOSPHORUS 5.4 mg/dL (2.5-4.9)
[2025-01-03] MEDS: MEROPENEM 500MG/50ML 50 ML IV SCH (08:09)
[2025-01-03 09:13] LABS: BAND% 11.0 % (1.0-6.0); LYMPHOCYTES % MANUAL 5.0 % (20.0-50.0); MONOCYTES % MANUAL 4.0 % (2.0-8.0); NEUTROPHILS % MANUAL 80.0 % (45.0-75.0); PLATELET ESTIMATE DECREASED
[2025-01-03 09:15] LABS: PLATELET 78 x1000/uL (130-400)
[2025-01-03] MEDS: SODIUM CHLORIDE 0.9% 500 ML IV NR (09:55)
[2025-01-03] MEDS: SODIUM CHLORIDE 0.9% 1,000 ML IV SCH ×2 (09:55→14:35)
[2025-01-03] MEDS ORDERED: FENTANYL 2500MCG/250ML PMX 250 ML IV PRN (10:00)
[2025-01-03 10:08] LABS: BG BASE EXCESS -0.5 mmol/L (-2.0-3.0); BG CARBOXYHEMOGLOBIN 1.3 % (0.5-1.5); BG DEOXYHEMOGLOBIN 1.1 % (0.0-5.0); BG FRACTION INSPIRED OXYGEN 30; BG HCO3 ACT 22.0 mmol/L (21.0-28.0); BG METHEMOGLOBIN 0.3 % (0.5-1.5); BG OXYGEN SATURATION 98.9 % (94.0-98.0); BG OXYHEMOGLOBIN 97.3 % (94.0-98.0); BG PCO2 27.5 mmHg (35.0-48.0); BG PEEP (cmH2O) 5.0 cmH2O; BG PH 7.520 (7.350-7.450); BG PO2 148.2 mmHg (83.0-108.0); BG SAMPLE SITE RIGHT RADIAL; BG TIDAL VOLUME(mL) 450.0 mL; BG TOTAL HEMOGLOBIN 8.1 g/dL (13.5-17.5); BG TOTAL RESPIRATORY RATE 16 b/min; BG VENT MODE VENT - SIMV; BG VENT RATE 8.0 set
[2025-01-03] MEDS ORDERED: DEXT 10% WATER 1,000 ML IV SCH ×2 (12:45→14:15)
[2025-01-03] MEDS: DEXT 10% WATER 1,000 ML IV SCH ×2 (12:53→14:34)
[2025-01-03] MEDS: BLOOD SUGAR DIAGNOSTIC STRIP TEST SCH (16:41)
[2025-01-03 18:29] LABS: CREATININE 3.8 mg/dL (0.6-1.3); UREA NITROGEN BLOOD 71.0 mg/dL (9-23)
[2025-01-03] MEDS: FAMOTIDINE 20MG/2ML VIAL IV SCH (21:27)
[2025-01-04] VITALS (67 sets, daily range): BP systolic 95–132; BP diastolic 64–93; PULSE 76–103; RESP 9–25; TEMP 36.3–36.9; O2SAT 95–100
[2025-01-04 05:52] LABS: CREATININE 3.8 mg/dL (0.6-1.3); UREA NITROGEN BLOOD 74 mg/dL (9-23)
[2025-01-04 05:53] LABS: HEMATOCRIT. 23.0 % (42.0-52.0); HEMOGLOBIN. 7.6 g/dL (14.0-18.0); RED BLOOD CELL COUNT 3.37 mill/uL (4.7-6.1); RED CELL DISTRIBUTION WIDTH 22.3 % (11.6-14.6)
[2025-01-04 05:54] LABS: PHOSPHORUS 5.3 mg/dL (2.5-4.9)
[2025-01-04 09:48] LABS: BG BASE EXCESS -1.8 mmol/L (-2.0-3.0); BG CARBOXYHEMOGLOBIN 1.3 % (0.5-1.5); BG DEOXYHEMOGLOBIN 0.9 % (0.0-5.0); BG FRACTION INSPIRED OXYGEN 30; BG HCO3 ACT 21.1 mmol/L (21.0-28.0); BG METHEMOGLOBIN 0.3 % (0.5-1.5); BG OXYGEN SATURATION 99.1 % (94.0-98.0); BG OXYHEMOGLOBIN 97.5 % (94.0-98.0); BG PCO2 28.2 mmHg (35.0-48.0); BG PEEP (cmH2O) 5.0 cmH2O; BG PH 7.492 (7.350-7.450); BG PO2 157.2 mmHg (83.0-108.0); BG SAMPLE SITE RIGHT RADIAL; BG TOTAL HEMOGLOBIN 7.4 g/dL (13.5-17.5); BG VENT MODE VENT - CPAP
[2025-01-04 10:22] LABS: PLATELET 87 x1000/uL (130-400)
[2025-01-04 10:28] LABS: BAND% 15.0 % (1.0-6.0); EOSINOPHILS % MANUAL 1.0 % (0.0-5.0); LYMPHOCYTES % MANUAL 5.0 % (20.0-50.0); MONOCYTES % MANUAL 2.0 % (2.0-8.0); NEUTROPHILS % MANUAL 77.0 % (45.0-75.0); PLATELET ESTIMATE DECREASED
[2025-01-05] VITALS (52 sets, daily range): BP systolic 91–142; BP diastolic 57–107; PULSE 82–95; RESP 11–29; TEMP 36–37.2; O2SAT 88–100
[2025-01-05 05:25] LABS: CREATININE 3.9 mg/dL (0.6-1.3)
[2025-01-05 05:26] LABS: UREA NITROGEN BLOOD 75.0 mg/dL (9-23)
[2025-01-05 07:04] LABS: HEMATOCRIT. 21.3 % (42.0-52.0); HEMOGLOBIN. 7.1 g/dL (14.0-18.0); RED BLOOD CELL COUNT 3.13 mill/uL (4.7-6.1); RED CELL DISTRIBUTION WIDTH 22.5 % (11.6-14.6)
[2025-01-05 11:39] LABS: BAND% 30.0 % (1.0-6.0); EOSINOPHILS % MANUAL 2.0 % (0.0-5.0); LYMPHOCYTES % MANUAL 5.0 % (20.0-50.0); MONOCYTES % MANUAL 6.0 % (2.0-8.0); NEUTROPHILS % MANUAL 57.0 % (45.0-75.0); NUCLEATED RED BLOOD CELLS 1 /100 WBC
[2025-01-05 11:44] LABS: PLATELET ESTIMATE DECREASED
[2025-01-05 11:45] LABS: MEAN PLATELET VOLUME 11.8 fl (7.4-10.4); PLATELET 110 x1000/uL (130-400)
[2025-01-06] VITALS (53 sets, daily range): BP systolic 91–125; BP diastolic 57–82; PULSE 79–97; RESP 13–27; TEMP 36.3–37; O2SAT 94–100
[2025-01-06] MEDS: ACETAMINOPHEN 325MG TABLET PO PRN (02:42)
[2025-01-06 05:15] LABS: CREATININE 3.9 mg/dL (0.6-1.3); UREA NITROGEN BLOOD 77.0 mg/dL (9-23)
[2025-01-06 05:17] LABS: MEAN PLATELET VOLUME 9.6 fl (7.4-10.4); PLATELET 105 x1000/uL (130-400); RED BLOOD CELL COUNT 2.97 mill/uL (4.7-6.1); RED CELL DISTRIBUTION WIDTH 21.8 % (11.6-14.6)
[2025-01-06 06:10] LABS: HEMATOCRIT. 20.5 % (42.0-52.0); HEMOGLOBIN. 6.7 g/dL (14.0-18.0)
[2025-01-06 11:30] LABS: BAND% 19.0 % (1.0-6.0); EOSINOPHILS % MANUAL 1.0 % (0.0-5.0); LYMPHOCYTES % MANUAL 9.0 % (20.0-50.0); MONOCYTES % MANUAL 1.0 % (2.0-8.0); NEUTROPHILS % MANUAL 70.0 % (45.0-75.0); PLATELET ESTIMATE SLIGHTLY DECREASED
[2025-01-06] MEDS: FERROUS SULFATE 325MG TABLET PO SCH (13:49)
[2025-01-06] MEDS: ASCORBIC ACID 500 MG TABLET PO SCH (13:49)
[2025-01-06] MEDS: PANTOPRAZOLE SODIUM 40 MG/VIAL IV SCH (20:21)
[2025-01-07] VITALS (14 sets, daily range): BP systolic 101–122; BP diastolic 67–83; PULSE 75–86; RESP 11–20; TEMP 33.4–36.9; O2SAT 94–100
[2025-01-07 13:15] LABS: HEMATOCRIT. 30.6 % (42.0-52.0); HEMOGLOBIN. 9.8 g/dL (14.0-18.0); MEAN PLATELET VOLUME 10.3 fl (7.4-10.4); PLATELET 147 x1000/uL (130-400); RED BLOOD CELL COUNT 4.06 mill/uL (4.7-6.1); RED CELL DISTRIBUTION WIDTH 22.6 % (11.6-14.6)
[2025-01-07 13:17] LABS: CREATININE 4.0 mg/dL (0.6-1.3); UREA NITROGEN BLOOD 78 mg/dL (9-23)
[2025-01-07 13:19] LABS: ASPARTATE AMINOTRANSFERASE 62 IU/L (<34); BILIRUBIN TOTAL 0.6 mg/dL (0.1-1.0); PROTEIN TOTAL 4.7 g/dL (6.0-8.3)
[2025-01-07 19:18] LABS: INR 1.0
[2025-01-07] MEDS: DEXT 5%/0.9% NACL 1,000 ML IV SCH (20:59)
[2025-01-07] MEDS: GLUCAGON,HUMAN RECOMBINANT 1MG/VIAL SUBCUT SCH (23:12)
[2025-01-08] VITALS (8 sets, daily range): BP systolic 111–134; BP diastolic 66–89; PULSE 73–88; RESP 13–20; TEMP 36.2–36.8; O2SAT 92–100
[2025-01-08] MEDS: FUROSEMIDE 40MG TABLET PO SCH (08:45)
[2025-01-08 09:13] LABS: BAND% 6.0 % (1.0-6.0); LYMPHOCYTES % MANUAL 1.0 % (20.0-50.0); MONOCYTES % MANUAL 3.0 % (2.0-8.0); NEUTROPHILS % MANUAL 90.0 % (45.0-75.0); PLATELET ESTIMATE NORMAL
[2025-01-08] MEDS ORDERED: LIDOCAINE HCL 1% 10 MG/ML 10ML VIAL ONE (09:28)
[2025-01-08] MEDS: DEXT 10% WATER 1,000 ML IV SCH (16:23)
[2025-01-08 19:24] LABS: HEMATOCRIT. 24.3 % (42.0-52.0); HEMOGLOBIN. 8.0 g/dL (14.0-18.0); MEAN PLATELET VOLUME 9.4 fl (7.4-10.4); PLATELET 194 x1000/uL (130-400); RED BLOOD CELL COUNT 3.31 mill/uL (4.7-6.1); RED CELL DISTRIBUTION WIDTH 22.6 % (11.6-14.6)
[2025-01-08 19:37] LABS: CREATININE 3.6 mg/dL (0.6-1.3)
[2025-01-08 19:38] LABS: UREA NITROGEN BLOOD 78.0 mg/dL (9-23)
[2025-01-08 19:39] LABS: INR 1.1
[2025-01-08 20:26] LABS: LYMPHOCYTES % MANUAL 2.0 % (20.0-50.0); MONOCYTES % MANUAL 4.0 % (2.0-8.0); NEUTROPHILS % MANUAL 94.0 % (45.0-75.0); PLATELET ESTIMATE NORMAL
[2025-01-09] VITALS (12 sets, daily range): BP systolic 105–125; BP diastolic 72–90; PULSE 79–99; RESP 15–22; TEMP 36.1–37.1; O2SAT 94–100
[2025-01-09 08:24] LABS: HEMATOCRIT. 25.6 % (42.0-52.0); HEMOGLOBIN. 8.4 g/dL (14.0-18.0); MEAN PLATELET VOLUME 9.7 fl (7.4-10.4); PLATELET 211 x1000/uL (130-400); RED BLOOD CELL COUNT 3.45 mill/uL (4.7-6.1); RED CELL DISTRIBUTION WIDTH 22.0 % (11.6-14.6)
[2025-01-09 08:27] LABS: CREATININE 3.5 mg/dL (0.6-1.3); UREA NITROGEN BLOOD 83.0 mg/dL (9-23)
[2025-01-09 21:38] LABS: BAND% 27.0 % (1.0-6.0); LYMPHOCYTES % MANUAL 6.0 % (20.0-50.0); METAMYELOCYTES % 1.0 % (0-0); MONOCYTES % MANUAL 3.0 % (2.0-8.0); NEUTROPHILS % MANUAL 63.0 % (45.0-75.0)
[2025-01-09 21:39] LABS: PLATELET ESTIMATE NORMAL
[2025-01-10] VITALS (12 sets, daily range): BP systolic 101–125; BP diastolic 55–90; PULSE 95–102; RESP 15–23; TEMP 36.3–36.7; O2SAT 94–100
[2025-01-10 07:18] LABS: HEMATOCRIT. 23.4 % (42.0-52.0); HEMOGLOBIN. 7.8 g/dL (14.0-18.0); MEAN PLATELET VOLUME 9.3 fl (7.4-10.4); PLATELET 200 x1000/uL (130-400); RED BLOOD CELL COUNT 3.23 mill/uL (4.7-6.1); RED CELL DISTRIBUTION WIDTH 22.3 % (11.6-14.6)
[2025-01-10 07:48] LABS: CREATININE 2.7 mg/dL (0.6-1.3); UREA NITROGEN BLOOD 69 mg/dL (9-23)
[2025-01-10 07:50] LABS: ASPARTATE AMINOTRANSFERASE 38 IU/L (<34)
[2025-01-10 07:51] LABS: BILIRUBIN TOTAL 0.5 mg/dL (0.1-1.0); PROTEIN TOTAL 4.6 g/dL (6.0-8.3)
[2025-01-10] MEDS ORDERED: HEPARIN 1000 UNITS/ML 10ML ONE ×2 (10:05→11:55)
[2025-01-10] MEDS ORDERED: IODIXANOL 320 MG/ML 150ML BOTTLE IV ONE (10:05)
[2025-01-10] MEDS ORDERED: LIDOCAINE HCL 1% 20ML VIAL ONE (10:05)
[2025-01-10] MEDS ORDERED: FENTANYL CITRATE/PF 50MCG/ML 2ML VIAL ONE (10:37)
[2025-01-10] MEDS ORDERED: MIDAZOLAM HCL 2 MG/2 ML VIAL ONE (10:53)
[2025-01-10] MEDS ORDERED: ALTEPLASE 2MG/VIAL ONE (11:29)
[2025-01-10] MEDS: ALBUMIN HUMAN 25GM/100ML (25%) IV NR (15:25)
[2025-01-10 16:56] LABS: HEMATOCRIT. 23.5 % (42.0-52.0); HEMOGLOBIN. 7.6 g/dL (14.0-18.0); MEAN PLATELET VOLUME 9.4 fl (7.4-10.4); PLATELET 207 x1000/uL (130-400); RED BLOOD CELL COUNT 3.17 mill/uL (4.7-6.1); RED CELL DISTRIBUTION WIDTH 22.1 % (11.6-14.6)
[2025-01-10] MEDS: APIXABAN 5 MG TABLET PO SCH (21:42)
[2025-01-10 23:34] LABS: BAND% 2.0 % (1.0-6.0); LYMPHOCYTES % MANUAL 4.0 % (20.0-50.0); MONOCYTES % MANUAL 2.0 % (2.0-8.0); NEUTROPHILS % MANUAL 92.0 % (45.0-75.0); PLATELET ESTIMATE NORMAL
[2025-01-11] VITALS (12 sets, daily range): BP systolic 102–116; BP diastolic 63–79; PULSE 93–106; RESP 19–23; TEMP 36.4–37.1; O2SAT 96–100
[2025-01-11 18:33] LABS: BAND% 4.0 % (1.0-6.0); LYMPHOCYTES % MANUAL 6.0 % (20.0-50.0); MONOCYTES % MANUAL 6.0 % (2.0-8.0); NEUTROPHILS % MANUAL 84.0 % (45.0-75.0); PLATELET ESTIMATE NORMAL
[2025-01-12] VITALS (15 sets, daily range): BP systolic 100–137; BP diastolic 60–83; PULSE 83–108; RESP 14–22; TEMP 36.33624–37.2; O2SAT 95–100
[2025-01-12 06:57] LABS: UREA NITROGEN BLOOD 52.0 mg/dL (9-23)
[2025-01-12 07:03] LABS: MEAN PLATELET VOLUME 9.0 fl (7.4-10.4); PLATELET 169 x1000/uL (130-400); RED BLOOD CELL COUNT 2.46 mill/uL (4.7-6.1); RED CELL DISTRIBUTION WIDTH 21.9 % (11.6-14.6)
[2025-01-12 07:09] LABS: HEMATOCRIT. 17.9 % (42.0-52.0); HEMOGLOBIN. 5.9 g/dL (14.0-18.0)
[2025-01-12 07:28] LABS: CREATININE 1.6 mg/dL (0.6-1.3)
[2025-01-12] MEDS: POTASSIUM CHLORIDE 20MEQ/PACKET NG NR (11:19)
[2025-01-12 16:36] LABS: LYMPHOCYTES % MANUAL 4.0 % (20.0-50.0); MONOCYTES % MANUAL 4.0 % (2.0-8.0); NEUTROPHILS % MANUAL 92.0 % (45.0-75.0); PLATELET ESTIMATE NORMAL
[2025-01-12 17:26] LABS: HEMATOCRIT. 21.5 % (42.0-52.0); HEMOGLOBIN. 7.2 g/dL (14.0-18.0); MEAN PLATELET VOLUME 9.0 fl (7.4-10.4); PLATELET 160 x1000/uL (130-400); RED BLOOD CELL COUNT 2.87 mill/uL (4.7-6.1); RED CELL DISTRIBUTION WIDTH 20.8 % (11.6-14.6)
[2025-01-12 18:27] LABS: LYMPHOCYTES % MANUAL 9.0 % (20.0-50.0); MONOCYTES % MANUAL 5.0 % (2.0-8.0); NEUTROPHILS % MANUAL 86.0 % (45.0-75.0); PLATELET ESTIMATE NORMAL
[2025-01-13] VITALS (19 sets, daily range): BP systolic 101–123; BP diastolic 54–81; PULSE 101–118; RESP 15–28; TEMP 36.6–37.9; O2SAT 100
[2025-01-13 05:43] LABS: CREATININE 1.3 mg/dL (0.6-1.3); UREA NITROGEN BLOOD 41 mg/dL (9-23)
[2025-01-13 07:22] LABS: MEAN PLATELET VOLUME 8.8 fl (7.4-10.4); PLATELET 164 x1000/uL (130-400); RED BLOOD CELL COUNT 2.61 mill/uL (4.7-6.1); RED CELL DISTRIBUTION WIDTH 20.8 % (11.6-14.6)
[2025-01-13 08:04] LABS: HEMATOCRIT. 20.1 % (42.0-52.0); HEMOGLOBIN. 6.6 g/dL (14.0-18.0)
[2025-01-13 18:12] LABS: LYMPHOCYTES % MANUAL 9.0 % (20.0-50.0); MONOCYTES % MANUAL 8.0 % (2.0-8.0); NEUTROPHILS % MANUAL 83.0 % (45.0-75.0); PLATELET ESTIMATE NORMAL
[2025-01-14] VITALS (12 sets, daily range): BP systolic 94–121; BP diastolic 58–78; PULSE 102–115; RESP 20–34; TEMP 37.2–38.1; O2SAT 94–100
[2025-01-14] MEDS: DIGOXIN 500MCG/2ML AMP IV NR ×2 (15:45→21:30)
[2025-01-15] VITALS (10 sets, daily range): BP systolic 90–112; BP diastolic 56–80; PULSE 104–112; RESP 20–28; TEMP 37.1–38.2; O2SAT 95–100
[2025-01-15 13:51] LABS: HEMATOCRIT. 25.4 % (42.0-52.0); HEMOGLOBIN. 8.3 g/dL (14.0-18.0); MEAN PLATELET VOLUME 8.1 fl (7.4-10.4); PLATELET 146 x1000/uL (130-400); RED BLOOD CELL COUNT 3.17 mill/uL (4.7-6.1); RED CELL DISTRIBUTION WIDTH 21.2 % (11.6-14.6)
[2025-01-15 13:55] LABS: CREATININE 0.8 mg/dL (0.6-1.3); UREA NITROGEN BLOOD 30 mg/dL (9-23)
[2025-01-15 17:40] LABS: LYMPHOCYTES % MANUAL 6.0 % (20.0-50.0); MONOCYTES % MANUAL 5.0 % (2.0-8.0); NEUTROPHILS % MANUAL 89.0 % (45.0-75.0); PLATELET ESTIMATE NORMAL
[2025-01-16] VITALS (7 sets, daily range): BP systolic 94–103; BP diastolic 57–74; PULSE 57–109; RESP 18–21; TEMP 36–37.1; O2SAT 93–100
[2025-01-16 10:59] LABS: HEMATOCRIT. 24.1 % (42.0-52.0); HEMOGLOBIN. 8.2 g/dL (14.0-18.0); MEAN PLATELET VOLUME 8.7 fl (7.4-10.4); PLATELET 192 x1000/uL (130-400); RED BLOOD CELL COUNT 3.11 mill/uL (4.7-6.1); RED CELL DISTRIBUTION WIDTH 20.9 % (11.6-14.6)
[2025-01-16 11:25] LABS: CREATININE 0.8 mg/dL (0.6-1.3); UREA NITROGEN BLOOD 28 mg/dL (9-23)
[2025-01-16] MEDS: POTASSIUM CHLORIDE 20MEQ TABLET SR PO NR (12:30)
[2025-01-16 14:10] LABS: BAND% 27.0 % (1.0-6.0); LYMPHOCYTES % MANUAL 7.0 % (20.0-50.0); MONOCYTES % MANUAL 12.0 % (2.0-8.0); NEUTROPHILS % MANUAL 54.0 % (45.0-75.0); PLATELET ESTIMATE NORMAL
[2025-01-18] MEDS ORDERED: APIXABAN 5 MG TABLET PO SCH (09:00)
== END 2025-01-17 00:11 | DRG 853 ==
LOC: ER 13:15 → MICUNO 14:14 → EDBEDREQTM 14:24 → EDBEDREQ 14:24 → ENRESERV 16:48 → 6WST 01-07 02:38 → 5EST 01-08 15:37 → 6EST 01-16 02:23
PROVIDERS: ADMIT Internal Medicine; ATTEND Internal Medicine
PROC: 5A1955Z Respiratory Ventilation, Greater than 96 Consecutive Hours (ICD-10-PCS; 2024-12-30)
PROC: 0BH17EZ Insertion of Endotracheal Airway into Trachea, Via Natural or Artificial Opening (ICD-10-PCS; 2024-12-30)
PROC: 30233N1 Transfusion of Nonautologous Red Blood Cells into Peripheral Vein, Percutaneous Approach (ICD-10-PCS; 2025-01-06)
PROC: 02HV33Z Insertion of Infusion Device into Superior Vena Cava, Percutaneous Approach (ICD-10-PCS; 2025-01-08)
PROC: B548ZZA Ultrasonography of Superior Vena Cava, Guidance (ICD-10-PCS; 2025-01-08)
PROC: 04CL3ZZ Extirpation of Matter from Left Femoral Artery, Percutaneous Approach (ICD-10-PCS; principal; 2025-01-10)
PROC: 04CN3ZZ Extirpation of Matter from Left Popliteal Artery, Percutaneous Approach (ICD-10-PCS; 2025-01-10)
PROC: 04CQ3ZZ Extirpation of Matter from Left Anterior Tibial Artery, Percutaneous Approach (ICD-10-PCS; 2025-01-10)
PROC: 047J3ZZ Dilation of Left External Iliac Artery, Percutaneous Approach (ICD-10-PCS; 2025-01-10)
PROC: 047D3DZ Dilation of Left Common Iliac Artery with Intraluminal Device, Percutaneous Approach (ICD-10-PCS; 2025-01-10)
PROC: B41D1ZZ Fluoroscopy of Aorta and Bilateral Lower Extremity Arteries using Low Osmolar Contrast (ICD-10-PCS; 2025-01-10)
PROC: 3E05317 Introduction of Other Thrombolytic into Peripheral Artery, Percutaneous Approach (ICD-10-PCS; 2025-01-10)
PROC: 0BH17EZ Insertion of Endotracheal Airway into Trachea, Via Natural or Artificial Opening (ICD-10-PCS; 2025-01-16)
PROC: 5A1935Z Respiratory Ventilation, Less than 24 Consecutive Hours (ICD-10-PCS; 2025-01-16)
PROC: 5A12012 Performance of Cardiac Output, Single, Manual (ICD-10-PCS; 2025-01-16)
DX: A41.59 Other Gram-negative sepsis (principal); I21.4 Non-ST elevation (NSTEMI) myocardial infarction; J96.01 Acute respiratory failure with hypoxia; R65.21 Severe sepsis with septic shock; J15.69 Pneumonia due to other Gram-negative bacteria; J15.0 Pneumonia due to Klebsiella pneumoniae; N17.0 Acute kidney failure with tubular necrosis; I50.43 Acute on chronic combined systolic (congestive) and diastolic (congestive) heart failure; G93.40 Encephalopathy, unspecified; I82.512 Chronic embolism and thrombosis of left femoral vein; D62 Acute posthemorrhagic anemia; N39.0 Urinary tract infection, site not specified; I74.5 Embolism and thrombosis of iliac artery; D68.59 Other primary thrombophilia; E87.1 Hypo-osmolality and hyponatremia; E87.29 Other acidosis; I13.0 Hypertensive heart and chronic kidney disease with heart failure and stage 1 through stage 4 chronic kidney disease, or unspecified chronic kidney disease; I42.9 Cardiomyopathy, unspecified; J44.0 Chronic obstructive pulmonary disease with (acute) lower respiratory infection; E87.0 Hyperosmolality and hypernatremia; E87.3 Alkalosis; I82.532 Chronic embolism and thrombosis of left popliteal vein; Z59.00 Homelessness unspecified; I70.262 Atherosclerosis of native arteries of extremities with gangrene, left leg; I48.0 Paroxysmal atrial fibrillation; F14.10 Cocaine abuse, uncomplicated; D50.9 Iron deficiency anemia, unspecified; D69.6 Thrombocytopenia, unspecified; E87.5 Hyperkalemia; E83.51 Hypocalcemia; E16.2 Hypoglycemia, unspecified; E86.0 Dehydration; K86.9 Disease of pancreas, unspecified; I71.40 Abdominal aortic aneurysm, without rupture, unspecified; I25.10 Atherosclerotic heart disease of native coronary artery without angina pectoris; Z93.3 Colostomy status; K76.89 Other specified diseases of liver; K76.0 Fatty (change of) liver, not elsewhere classified; E83.39 Other disorders of phosphorus metabolism; E88.09 Other disorders of plasma-protein metabolism, not elsewhere classified; S80.211A Abrasion, right knee, initial encounter; N18.9 Chronic kidney disease, unspecified; Z79.01 Long term (current) use of anticoagulants; S61.411A Laceration without foreign body of right hand, initial encounter; Z85.038 Personal history of other malignant neoplasm of large intestine; Z86.73 Personal history of transient ischemic attack (TIA), and cerebral infarction without residual deficits; Z88.0 Allergy status to penicillin; Z88.5 Allergy status to narcotic agent; Z89.512 Acquired absence of left leg below knee; Z90.49 Acquired absence of other specified parts of digestive tract; Z98.61 Coronary angioplasty status; X58.XXXA Exposure to other specified factors, initial encounter; Y93.89 Activity, other specified; Y92.89 Other specified places as the place of occurrence of the external cause; Y99.8 Other external cause status; I45.10 Unspecified right bundle-branch block; I34.81 Nonrheumatic mitral (valve) annulus calcification
CPT/HCPCS: 31500; 31720; 36415; 36573; 36600; 37184; 37185; 37211; 37221; 71045; 74177; 75710; 76604; 76770; 78580; 80048; 80053; 80076; 80202; 80305; 81003; 82040; 82105; 82150; 82247; 82248; 82270; 82330; 82375; 82378; 82533; 82550; 82570; 82607; 82728; 82746; 82805; 82962; 83036; 83540; 83550; 83605; 83735; 83880; 83935; 84100; 84145; 84300; 84443; 84478; 84484; 84540; 85014; 85018; 85025; 85044; 85347; 85379; 86301; 86850; 86900; 86920; 87070; 87077; 87186; 92610; 92950; 93005; 93306; 93923; 93970; 94003; 94070; 94640; 94664; 98960; 99285; A4606; A6261; C1725; C1760; C1769; C1876; C1887; C1893; C1894; G0378; J0282; J1160; J1308; J1610; J1644; J1720; J1938; J2003; J2185; J2250; J2270; J2470; J2543; J2704; J2997; J3010; J3373; J3490; J7030; J7060; J7070; P9016; P9047; Q9967; C1757